=== PATIENT | female | born 1960 | race Caucasian/White ===

== ENCOUNTER 2018-10-21 07:34 | Day surgery (SDC) | payer MEDICARE, MEDICAID ==
[~2018-10-21] VITALS: Ht 162.6 cm; Wt 121.5 kg
[2018-10-21] VITALS (10 sets, daily range): BP systolic 105–148; BP diastolic 50–103
[~2018-10-21 07:34] MED LIST: ALBU18HF2 INH; BUPR100T13 PO; CLOP75TA35 PO; DIAZ10TA5 PO; DIME240C2 PO; HYDR-3972 PO; HYDR50TA65 PO; LISI40TA4 PO; OMEP40CA PO; VORT20TA PO
[2018-10-21] MEDS ORDERED: sod bicarbonate 150mEq in D5W 1,150 ML IV ONE (07:50)
[2018-10-21] MEDS ORDERED: normal saline 1000ml 1,000 ML IV SCH (07:50)
[2018-10-21] MEDS ORDERED: diphenhydrAMINE 25mg capsule PO PRN (07:50)
[2018-10-21] MEDS ORDERED: LISI-600 PO (08:37)
[2018-10-21] MEDS ORDERED: ATOR40TA PO (08:53)
[2018-10-21] MEDS ORDERED: DIME240C2 PO (08:56)
[2018-10-21] MEDS ORDERED: ASPI81TA52 PO (08:59)
[2018-10-21] MEDS ORDERED: NAPR-917 PO (09:03)
[2018-10-21] MEDS ORDERED: QUET-1 PO (09:04)
[2018-10-21 09:20] LABS: ALBUMIN 4.6 G/DL (3.4-5.0); ANION GAP 12 (8-16); BLOOD UREA NITROGEN 24 MG/DL (7-18); BUN/CREATININE RATIO 26.4 (6.6-38.0); CALCIUM 10.1 MG/DL (8.5-10.1); CHLORIDE 103 MMOL/L (99-107); CREATININE 0.91 MG/DL (0.40-0.90); GLUCOSE 89 MG/DL (70-104); MAGNESIUM 1.9 MG/DL (1.5-2.4); POTASSIUM 3.9 MMOL/L (3.5-5.1); SODIUM 140 MMOL/L (135-145); TOTAL CARBON DIOXIDE 24.8 MMOL/L (24-32); eGFR 64 ML/MIN
[2018-10-21 09:24] LABS: INR 0.9 INR; PROTHROMBIN TIME 9.5 SECONDS (9.0-12.0)
[2018-10-21 09:26] LABS: BASOPHILS # (AUTO) 0.1 X10'3 (0-0.2); BASOPHILS % (AUTO) 1.3 % (0-1); EOSINOPHILS # (AUTO) 0.1 X10'3 (0-0.9); EOSINOPHILS % (AUTO) 1.9 % (0-6); HEMATOCRIT 45.9 % (35.0-45.0); HEMOGLOBIN 15.3 g/dl (12.0-16.0); LYMPHOCYTES # (AUTO) 1.8 X10'3 (1.1-4.8); LYMPHOCYTES % (AUTO) 29.2 % (21-51); MEAN CORPUSCULAR HEMOGLOBIN 28.6 PG (27.0-31.0); MEAN CORPUSCULAR HGB CONC 33.4 g/dL (33.0-36.5); MEAN CORPUSCULAR VOLUME 85.8 FL (78-98); MEAN PLATELET VOLUME 7.7 FL (7.4-10.4); MONOCYTES # (AUTO) 0.5 X10'3 (0-0.9); MONOCYTES % (AUTO) 8.7 % (2-12); NEUTROPHILS # (AUTO) 3.7 X10'3 (1.8-7.7); NEUTROPHILS % (AUTO) 58.9 % (42-75); PLATELET COUNT 269 X10'3 (140-440); RED BLOOD COUNT 5.35 X10'6 (4.20-5.60); RED CELL DISTRIBUTION WIDTH 14.4 % (11.5-14.5); WHITE BLOOD COUNT 6.3 X10'3 (4.5-11.0)
[2018-10-21] MEDS ORDERED: proCHLORperazine 10 MG/2 ml inj ONE (09:39)
[2018-10-21] MEDS ORDERED: iohexol 350 MG/ML 50ML vial IV ONE (09:40)
[2018-10-21] MEDS ORDERED: midazolam 2 mg/2 ml injection ONE ×3 (09:40→10:35)
[2018-10-21] MEDS ORDERED: fentaNYL/PF 50MCG/1 ML 2ML syringe ONE ×2 (09:40→10:07)
[2018-10-21] MEDS ORDERED: LIDOcaine 1% (10mg/ml)w/preservative injection 20ml MDV ONE (09:40)
[2018-10-21] MEDS ORDERED: iohexol 350MG/ML 100ml bottle IV ONE (09:40)
[2018-10-21] MEDS ORDERED: HYDROcodone/acetaminophen 10/325mg tab PO PRN (10:50)
[2018-10-21] MEDS ORDERED: proCHLORperazine 10 MG/2 ml inj IV PRN (10:50)
[2018-10-21] MEDS ORDERED: HYDROcodone/acetaminophen 5mg/325mg tablet PO PRN (10:50)
[2018-10-21] MEDS ORDERED: ondansetron/PF 4mg/2ml inj IV PRN (10:50)
== END 2018-10-21 15:55 | disposition home or self-care (01) ==
LOC: SSTAY O 07:34
PROVIDERS: ATTEND Internal Medicine Cardiovascular Disease
DX: R07.9 Chest pain, unspecified (principal); Z88.1 Allergy status to other antibiotic agents; Z88.5 Allergy status to narcotic agent; Z79.899 Other long term (current) drug therapy
CPT/HCPCS: 36415; 80048; 83735; 85025; 85610; 93005; 93458; 99152; 99153; A6257; J0780; J1644; J2001; J2250; J3010; J7030; Q0163; Q9967; A4620; C1769; C1894

== ENCOUNTER 2019-03-24 00:35 | Outpatient (CLI) | payer MEDICARE, MEDICAID ==
[~2019-03-24 00:35] MED LIST changes: +ASPI81TA52 PO; +ATOR40TA PO; -CLOP75TA35 PO; -DIAZ10TA5 PO; -HYDR50TA65 PO; +LISI-600 PO; -LISI40TA4 PO; +NAPR-917 PO; +QUET-1 PO
== END 2019-03-24 23:59 | disposition home or self-care (01) ==
LOC: DIABETIC 00:35
PROVIDERS: ATTEND Surgery
DX: E66.01 Morbid (severe) obesity due to excess calories (principal)
CPT/HCPCS: 97803

== ENCOUNTER 2019-04-22 01:55 | Outpatient (CLI) | payer MEDICARE, MEDICAID | END 2019-04-22 23:59 | disposition home or self-care (01) | LOC: DIABETIC 01:55 | PROVIDERS: ATTEND Surgery | DX: E66.01 Morbid (severe) obesity due to excess calories (principal); I10 Essential (primary) hypertension; G47.30 Sleep apnea, unspecified; K21.9 Gastro-esophageal reflux disease without esophagitis; F19.10 Other psychoactive substance abuse, uncomplicated; Z87.891 Personal history of nicotine dependence | CPT/HCPCS: 97803 ==

== ENCOUNTER 2019-05-20 03:43 | Outpatient (CLI) | payer MEDICARE, MEDICAID | END 2019-05-20 23:59 | disposition home or self-care (01) | LOC: DIABETIC 03:43 | PROVIDERS: ATTEND Surgery | DX: E66.01 Morbid (severe) obesity due to excess calories (principal); Z71.3 Dietary counseling and surveillance; Z68.42 Body mass index [BMI] 45.0-49.9, adult; I10 Essential (primary) hypertension; K21.9 Gastro-esophageal reflux disease without esophagitis; G47.30 Sleep apnea, unspecified; Z87.891 Personal history of nicotine dependence; F50.9 Eating disorder, unspecified | CPT/HCPCS: 97803 ==

== ENCOUNTER 2019-06-17 00:01 | Outpatient (CLI) | payer MEDICARE, MEDICAID | END 2019-06-17 23:59 | disposition home or self-care (01) | LOC: DIABETIC 00:01 | PROVIDERS: ATTEND Surgery | DX: E66.01 Morbid (severe) obesity due to excess calories (principal); Z71.3 Dietary counseling and surveillance; Z68.41 Body mass index [BMI] 40.0-44.9, adult; K21.9 Gastro-esophageal reflux disease without esophagitis; I10 Essential (primary) hypertension; G47.30 Sleep apnea, unspecified; Z86.73 Personal history of transient ischemic attack (TIA), and cerebral infarction without residual deficits | CPT/HCPCS: 97803 ==

== ENCOUNTER 2020-06-14 11:35 | Emergency (ER) | payer BC, MEDICAID ==
[~2020-06-14] VITALS: Ht 162.6 cm; Wt 85.5 kg
[2020-06-14 12:00] VITALS: BP 143/86
[2020-06-14 12:23] LABS: CLARITY,URINE TURBID (Clear); COLOR,URINE YELLOW (Yellow); GLUCOSE, URINE NEGATIVE (Neg); KETONES,URINE NEGATIVE (Neg); LEUKOCYTE ESTERASE ,URINE MODERATE (Neg); NITRITES, URINE POSITIVE (Neg); OCCULT BLOOD,URINE MODERATE (Neg); PH,URINE 5.5 (4.8-8.0); PROTEIN,URINE 30 mg/dl (Neg); UA COLLECTION TYPE CLN CATCH MIDSTREAM
[2020-06-14 12:30] LABS: MUCUS STRANDS MANY /LPF (Neg); SQUAMOUS EPITHELIAL CELL,UR MANY /LPF (FEW)
[2020-06-14 12:31] LABS: BACTERIA,URINE 4+ /HPF (Neg); WBC,URINE TNTC /HPF (0-4)
[2020-06-14 12:32] LABS: CAL OXALATE CRYSTALS FEW /HPF (NEGATIVE)
[2020-06-14] MEDS ORDERED: CefTRIAXone 1000mg IM Kit (w/lidocaine diluent) IM ONE (12:35)
[2020-06-14] MEDS ORDERED: CIPR-259 PO (12:40)
[2020-06-14] MEDS ORDERED: PHEN-716 PO (12:40)
== END 2020-06-14 13:04 | disposition home or self-care (01) ==
LOC: ER 11:37
DX: N39.0 Urinary tract infection, site not specified (principal); I10 Essential (primary) hypertension; Z86.73 Personal history of transient ischemic attack (TIA), and cerebral infarction without residual deficits; Z90.49 Acquired absence of other specified parts of digestive tract; Z98.890 Other specified postprocedural states; Z88.2 Allergy status to sulfonamides; Z88.5 Allergy status to narcotic agent; Z79.82 Long term (current) use of aspirin; Z79.899 Other long term (current) drug therapy
CPT/HCPCS: 81001; 96372; 99283; J0696

== ENCOUNTER 2020-07-21 11:52 | Emergency (ER) | payer BC, MEDICAID ==
[~2020-07-21] VITALS: Ht 162.6 cm; Wt 82.7 kg
[~2020-07-21 11:52] MED LIST changes: +PHEN-716 PO
[2020-07-21 12:22] VITALS: BP 136/95
== END 2020-07-21 12:40 | disposition home or self-care (01) ==
LOC: ER 11:52
DX: U07.1 COVID-19 (principal); J06.9 Acute upper respiratory infection, unspecified; I10 Essential (primary) hypertension; Z86.73 Personal history of transient ischemic attack (TIA), and cerebral infarction without residual deficits; Z90.49 Acquired absence of other specified parts of digestive tract; Z98.891 History of uterine scar from previous surgery; Z98.890 Other specified postprocedural states; Z86.79 Personal history of other diseases of the circulatory system; Z88.2 Allergy status to sulfonamides; Z88.8 Allergy status to other drugs, medicaments and biological substances; Z79.82 Long term (current) use of aspirin; Z79.899 Other long term (current) drug therapy; B97.89 Other viral agents as the cause of diseases classified elsewhere
CPT/HCPCS: 36415; 87635; 99283

== ENCOUNTER 2023-03-05 04:39 | Emergency (ER) | payer MEDICARE, MEDICAID ==
[~2023-03-05] VITALS: Ht 160 cm; Wt 98.2 kg
[~2023-03-05 04:39] MED LIST changes: -LISI-600 PO; +LISI20TA28 PO
[2023-03-05 04:41] VITALS: BP 193/114; PULSE 83; RESP 16; TEMP 97.5; O2SAT 99
[2023-03-05] MEDS ORDERED: TETRACAINE 0.5% 4 ML OPHTHALMIC DROPS LEFTEYE ONE (04:55)
[2023-03-05] MEDS ORDERED: POLOS LEFTEYE (05:17)
[2023-03-05] MEDS ORDERED: CEPH-585 PO (05:52)
[2023-03-05 05:58] LABS: COLOR,URINE YELLOW (Yellow); GLUCOSE, URINE NEGATIVE (Neg); KETONES,URINE NEGATIVE (Neg); LEUKOCYTE ESTERASE ,URINE TRACE (Neg); NITRITES, URINE NEGATIVE (Neg); OCCULT BLOOD,URINE NEGATIVE (Neg); PROTEIN,URINE NEGATIVE (Neg)
[2023-03-05 06:02] LABS: CLARITY,URINE SLIGHTLY CLOUDY (Clear); UA COLLECTION TYPE CLN CATCH MIDSTREAM
[2023-03-05 06:07] LABS: BACTERIA,URINE 4+ /HPF (Neg); MUCUS STRANDS NONE SEEN /LPF (Neg); RBC,URINE NONE SEEN /HPF (0-2); SQUAMOUS EPITHELIAL CELL,UR MANY /LPF (FEW); WBC,URINE 30-50 /HPF (0-4)
== END 2023-03-05 06:20 | disposition home or self-care (01) ==
LOC: ER 04:39
DX: H10.9 Unspecified conjunctivitis (principal); N39.0 Urinary tract infection, site not specified; I10 Essential (primary) hypertension; Z88.2 Allergy status to sulfonamides; Z88.5 Allergy status to narcotic agent; Z79.82 Long term (current) use of aspirin; Z79.899 Other long term (current) drug therapy; Z98.890 Other specified postprocedural states
CPT/HCPCS: 81001; 99283

== ENCOUNTER 2024-02-03 22:12 | Emergency (ER) | payer MEDICARE, MEDICAID ==
[~2024-02-03] VITALS: Ht 162.6 cm; Wt 95.5 kg
[~2024-02-03 22:12] MED LIST changes: +CEPH-585 PO
[2024-02-03 22:24] VITALS: BP 183/72; PULSE 84; TEMP 98; O2SAT 98
[2024-02-03] MEDS ORDERED: NAPR-56 PO (23:50)
[2024-02-03 23:57] VITALS: RESP 16
[2024-02-03] MEDS: ketorolac tromethamine 15mg/ml inj. IM ONE (23:57)
== END 2024-02-04 00:06 | disposition home or self-care (01) ==
LOC: ER 22:13
DX: M79.671 Pain in right foot (principal); I10 Essential (primary) hypertension; F32.A Depression, unspecified; F17.200 Nicotine dependence, unspecified, uncomplicated; I25.10 Atherosclerotic heart disease of native coronary artery without angina pectoris; Z90.49 Acquired absence of other specified parts of digestive tract; Z98.890 Other specified postprocedural states; Z88.2 Allergy status to sulfonamides; Z79.82 Long term (current) use of aspirin; Z79.2 Long term (current) use of antibiotics; Z79.899 Other long term (current) drug therapy; Z86.73 Personal history of transient ischemic attack (TIA), and cerebral infarction without residual deficits
CPT/HCPCS: 73630; 96372; 99283; J1885